=== PATIENT | female | born 2000 | race Caucasian/White ===

== ENCOUNTER 2021-09-20 16:30 | Inpatient (IN) | payer OTHER, SELFPAY ==
[2021-09-20 16:24] VITALS: BMI 38.7
--- NOTE | 2021-09-20 17:07 | PCM.HP.OB ---
HPI - General General Date of Admission: 09/20/21 HPI Narrative COLETTE ADAMS, is a 20 @ 41 weeks F who presents for POST DATES EDC. pt reports decreased FM over last few days. Pt denies VB, LOF. Maternal Data Information Final NICK: 09/13/21 Final NICK Source: US <20 weeks Gestational age: 40 PFSH PFSH Home Medications acetaminophen [Tylenol] 650 mg PO Q6H PRN 09/20/21 [History Last Taken Unknown] vit-iron fum-folic ac [ Fa] 1 tab PO DAILY 09/20/21 [History Last Taken Unknown] Allergy/AdvReac Type Severity Reaction Status Date / Time No Known Allergies Allergy Verified 09/20/21 16:24 Social History Smoking Status: Never smoker History Elective abortions Hx Para 0 Spontaneous abortions Hx # Term Pregnancies Ectopic pregnancies Hx # Pregnancies Multiple births # of living children NST FHR Rate Baby A Baseline: 145 Variability:: Moderate Accelerations:: 15 x 15 Decelerations:: None NST Reactive:: Yes FHR Category:: Category I Vital Signs Vital Signs Vital Signs: Weight Weight: 99.3 kg Body Mass Index (BMI) 38.7 Physical Exam Narrative VE: Closed/Thick/Posterior and high Const alert and oriented x3 General Appearance: cooperative HEENT normocephalic GI GI Narrative: Gravid, non tender to palpation. OB / External & Speculum: external exam normal Extremity normal to inspection Skin no rashes or lesions noted Neuro oriented x3 and CN's II-XII intact bilaterally Psych Appearance: grossly normal Labs Labs Labs: No Data to Display Assessment & Plan (1) 41 weeks gestation of : PLAN: Admit to L&D Mont[place] FHR/TOCO Epidural if requested for pain Monitor VS Anticipate CYTOTEC induction with possible transcervical mccall
[2021-09-20 17:30] VITALS: BP 128/64; PULSE 56; TEMP 36.7
[2021-09-20 17:40] LABS: Absolute Lymphocyte Count 3.22 X10^3/uL (0.83-4.51); Absolute Neutrophil Count 10.4 X10^3/uL (2.0-7.7); Basophil# 0.06 X10^3/uL; Basophil% 0.4 % (0-1); Eosinophil# 0.14 X10^3/uL; Eosinophils% 0.9 % (0-5); Hematocrit 37.4 % (37-47); Hemoglobin 12.7 g/dL (12.0-15.0); Lymphocyte # 3.22 X10^3/ul (0.83-4.51); Lymphocyte % 21.6 % (19-41); Mean Corpuscular Hgb 28.7 pg (27.0-32.0); Mean Corpuscular Volume 84.6 fL (81-99); Mean Platelet Vol. 11.8 fl (6.2-12.0); Monocyte# 0.95 X10^3/uL; Monocyte% 6.4 % (0-10); NRBC Flagged by Analyzer 0 % (0-5); Neutrophil # 10.38 X10^3/uL (2.7-7.7); Neutrophil % 69.6 % (47-70); Platelet Count 278 K/mm3 (150-450); RBC Distribution Width CV 15.1 % (11.6-14.6); RBC Distribution Width SD 46.1 fl (35.1-43.9); Red Blood Count 4.42 M/mm3 (4.2-5.4); White Blood Count 14.9 K/mm3 (4.4-11.0)
[2021-09-20] MEDS: Lactated Ringers 1,000 ML 50 ML IV (17:50)
[2021-09-20] MEDS: miSOPROStol 25 MCG TABLET VAGINAL (18:49)
[2021-09-20 19:19] VITALS: BP 125/67; PULSE 73; TEMP 36.7
[2021-09-20] MEDS: 0.9% Saline Lock 10 ML Syringe IV (19:38)
[2021-09-20 20:35] VITALS: BP 142/73; PULSE 72; TEMP 36.5
[2021-09-20 21:40] VITALS: BP 122/76; PULSE 64
[2021-09-20 21:41] VITALS: TEMP 36.3
[2021-09-20 22:39] VITALS: BP 121/77; PULSE 74
[2021-09-20] MEDS: miSOPROStol 50 MCG TABLET VAGINAL (22:58)
[2021-09-21] VITALS (41 sets, daily range): BP systolic 102–148; BP diastolic 47–87; PULSE 58–113; RESP 14–18; TEMP 36.2–37.4; O2SAT 93–100
--- NOTE | 2021-09-21 06:48 | PCM.PN.BLA ---
Progress Note Patient seen at bedside, doing well. Patient reports is starting to feel some contractions. Vaginal exam she is /- transcervical Blanco bulb placed. Patient tolerated well. heart rate category one. We will start Pitocin at this time.
[2021-09-21] MEDS: 0.9% Normal Saline Single 100 ML IV.SOLN. INTRA-UTER (06:51)
[2021-09-21] MEDS: Oxytocin 30 units/NS 500 ml 30 UNITS/500 ML IV.SOLN IV (07:46)
[2021-09-21] MEDS: Lactated Ringers 500 ML 999 ML IV ×2 (08:10→10:24)
--- NOTE | 2021-09-21 10:52 | PCM.PN.BLA ---
Progress Note Patient seen at bedside, doing well. Patient reports contractions are getting more painful rates them 7 out of 10 on a pain scale. Vaginal exam performed /-2 AROM performed thick meconium. Narrow pubic arch on exam. IUPC and IFM placed. Patient considering epidural at this time. Continue Pitocin.
[2021-09-21] MEDS: fentaNYL-bupivacaine (epidural) 100 ML BAG EPIDURAL (11:30)
[2021-09-21] MEDS: Lactated Ringers 1,000 ML 200 ML IV (13:21)
[2021-09-21] MEDS: Acetaminophen 500 MG Tablet PO (15:42)
[2021-09-21] MEDS: Sodium Citrate/Citric Acid 30 ML UDC PO (15:42)
[2021-09-21] MEDS: Cefazolin 2 GM in 0.9% Normal Saline 100 ML IV (16:11)
--- NOTE | 2021-09-21 16:45 | EX.PCM.OBRPT ---
Assessment & Plan (1) heart rate decelerations affecting management of mother: (2) 41 weeks gestation of : (3) Meconium in amniotic fluid affecting management of mother: (4) Obesity affecting : Maternal Data Information Final NICK: 09/13/21 Final NICK Source: US <20 weeks Gestational age: 41.1 Details Operative Information Date of Procedure: 09/21/21 Pre-Operative Diagnosis: 41.1 weeks gestation, meconium amniotic fluid, category 2 FHR remote from delivery, obesity in Post-Operative Diagnosis: same, live male Indications for : Distress Indications Narrative: Patient underwent induction of labor due to postdates. She had 2 doses of Cytotec followed by Blanco and Pitocin. Artificial rupture membranes was performed meconium fluid noted. Patient having tachysystole unable to continue increasing Pitocin due to tachysystole and variable decelerations as well as prolonged decelerations. Patient was counseled on primary section due to remote from delivery and category 2 heart rate tracing. Patient agreed and proceeded with primary section. 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 ) Antibiotic Given: Ancef 2 grams IV x1 and Zithromax 500 mg/5 mL X1 Drain: Blanco to straight drain Estimated Blood Loss: 600 Fluids Replaced: 1000 Procedure Start Time: 16:13 Procedure Stop Time: 16:42 Time of Delivery: 16:16 Findings Description of Procedure: After informed consent was obtained the patient was taken the operating room. epidural anesthesia was found to be inadequate- local 1% lidoaine injected at incision site- pt comfortable. She was then placed in the supine position. She was prepped and draped in the normal sterile fashion. Anesthesia was found to be adequate. At this time a Pfannenstiel skin incision was made with a knife was carried down to the underlying layer of the fascia. The fascial incision was then extended laterally using curved Segundo scissor. Attention was then turned to the superior aspect of the fascial edge was grasped with 2 straight Sd clamps tented up and the rectus muscle dissected off sharply using curved Segundo scissor. Attention was then turned to the inferior aspect where again [place] clamps were placed in the rectus muscles were tented up and the fascia was dissected off sharply using the curved Segundo scissor. .Rectus muscles were then in the midline bluntly and peritoneum was entered bluntly. Gentle opposing traction was placed. At this time the vesicouterine peritoneum was identified. Scalpel was used to make a uterine incision in a low transverse fashion. The uterus was then entered bluntly gentle opposing traction was placed to extend this incision. Meconinum fluid still noted. 's head was brought to the uterine incision was delivered atraumatically. 1 loose nuchal noted and reduced. mouth and nose suctioned- infant was vigorous.delayed cord clamping. Cord was clamped and cut infant was handed to the waiting nursery team. Pt had pain on left- anesthesia gave IV versed to help with patient comfort. The Placenta was removed from the uterus. The uterus remained in intraabdominal cavity. The uterus was cleared of all clots and debris using a lap. At this time the uterine incision was reapproximated using #1 Vicryl in a running locked fashion. followed by a second layer with multiple figure of eights with 1-0 vicryl. Hemostasis was appreciated. Gutters were cleared of all clots and debris. Uterine incision was reevaluated and noted to be of excellent hemostasis. At this time the peritoneum was grasped with Kellys reapproximated using #2 Vicryl suture in a running fashion. Muscles then reapproximated using #2 Vicryl in a interrupted mattress suture fashion. Fascia was then reapproximated using #1 Vicryl in a running fashion. Subcu layer was reapproximated with #2 0 plain gut suture in an interrupted fashion. Subcu layer was closed using 4-0 vicryl on a Aubrey needle in a subcu fashion. Dry sterile dressing was applied. Instrument lap needle count correct ?2. Anticipated normal postoperative course. Presentation: Positive for Vertex Amniotic Membrane Rupture Type: Artificial Amniotic Fluid Description: Thick meconium Placental Delivery Description: Expressed Placenta Disposition: [facility] Cord Vessel Description: 3 Vessels Cord Entanglement: Around neck x 1, loose Nuchal Cord Compression: With compression Infant A Gender: Male (1 minute): 9 (5 minute): 9 Delayed Cord Clamping: Yes Complications Risks of Surgery Discussed w/Patient: Bleeding, Anesthesia Risks, Infection and Injury to surrounding structure(s) including bowel and bladder Complications: none
[2021-09-21] MEDS: Oxytocin 30 units/NS 500 ml 30 UNITS/500 ML IV.SOLN 167 UNITS IV (17:00)
--- NOTE | 2021-09-21 17:23 | NURSING ---
Received report from Anthony Farooq RN. Will assume care at this time.
[2021-09-21] MEDS: Ketorolac 30 MG/ML Syringe IV ×2 (17:37→22:35)
[2021-09-21] MEDS: Methylergonovine 0.2 MG/ML Ampul IM (17:51)
[2021-09-21] MEDS: Lactated Ringers 1,000 ML 100 ML IV (20:42)
[2021-09-21] MEDS: Acetaminophen 500 MG Tablet 1000 MG PO (21:39)
[2021-09-22] VITALS (8 sets, daily range): BP systolic 106–121; BP diastolic 58–65; PULSE 71–94; RESP 14–18; TEMP 36.4–36.6; O2SAT 96–98
[2021-09-22] MEDS: Acetaminophen 500 MG Tablet 1000 MG PO ×4 (03:42→21:54)
[2021-09-22] MEDS: Ketorolac 30 MG/ML Syringe IV ×2 (05:03→11:04)
[2021-09-22 05:21] LABS: Hematocrit 29.4 % (37-47); Hemoglobin 9.8 g/dL (12.0-15.0); Mean Corp Hgb Conc 33.3 g/dL (32-36); Mean Corpuscular Hgb 28.3 pg (27.0-32.0); Mean Platelet Vol. 11.3 fl (6.2-12.0); Platelet Count 226 K/mm3 (150-450); RBC Distribution Width SD 46.1 fl (35.1-43.9); Red Blood Count 3.46 M/mm3 (4.2-5.4); White Blood Count 24.1 K/mm3 (4.4-11.0)
[2021-09-22] MEDS: Enoxaparin 40 MG/0.4 ML Syringe SC (06:10)
--- NOTE | 2021-09-22 07:46 | PCM.PN.OB ---
Subjective Subjective Patient seen at bedside, doing well. Patient reports good pain control. Mild lochia. Patient reports urinating without difficulty and passing flatus. Tolerating regular diet. Breast-feeding. Denies any dizziness with ambulation. Objective Data Objective Data Vital Signs: Vital Signs Temp Pulse Resp BP Pulse Ox 97.7 F L 86 18 106/63 97 09/22/21 03:39 09/22/21 05:01 09/22/21 06:32 09/22/21 03:39 09/22/21 05:01 Oxygen Delivery Method Room Air Weight: 99.3 kg Body Mass Index (BMI) 38.7 Intake & Output: Intake and Output for Last 24 Hours 09/20/21 09/21/21 09/22/21 23:59 23:59 23:59 Intake Total 92.5 / 92.5 3198.44 / 3198.44 468.33 / 468.33 Output Total 2058 / 2058 2100 / 2100 Balance 92.5 / 92.5 1139.44 / 1139.44 -1631.67 / -1631.67 Lab / Micro Data Result Diagrams: 09/22/21 05:10 Labs: Laboratory Results - last 24 hr 09/22/21 05:10: WBC 24.1 H, RBC 3.46 L, Hgb 9.8 L, Hct 29.4 L, MCV 85.0, MCH 28.3, MCHC 33.3, RDW Std Deviation 46.1 H, RDW Coeff of Skyler 15.0 H, Plt Count 226, MPV 11.3 Micro: Microbiology 09/20/21 17:25 Nasal Secretion SARS-CoV-2 Antigen (Rapid) - Final Physical Exam Narrative Dressing is dry and intact. Const alert and oriented x3 General Appearance: cooperative HEENT normocephalic Neck General: normal visual inspection GI soft to palpation and non-distended GI Narrative: Fundus firm Extremity normal to inspection and no calf tenderness Skin no rashes or lesions noted Neuro oriented x3 and CN's II-XII intact bilaterally Psych mental status grossly normal Assessment & Plan (1) Delivery by section: (2) Acute blood loss anemia: PLAN: POD# 1 , Doing well- acute blood loss anemia (asymptomatic) Routine care pain mgmt monitor VS ambulation repeat cbc tomorrow morning start PO IRON
[2021-09-22] MEDS: Senna/Docusate Sodium 1 Tablet PO (10:07)
[2021-09-22] MEDS: Ferrous Sulfate 325 MG Tablet PO (11:04)
[2021-09-22] MEDS: 0.9% Saline Lock 10 ML Syringe IV (11:05)
[2021-09-22] MEDS: Ibuprofen 600 MG Tablet PO ×2 (16:47→21:54)
[2021-09-23] MEDS: Acetaminophen 500 MG Tablet 1000 MG PO ×2 (03:17→10:43)
[2021-09-23 03:52] VITALS: BP 109/61; PULSE 73; RESP 18; TEMP 36.6
[2021-09-23] MEDS: Ibuprofen 600 MG Tablet PO ×2 (04:02→10:43)
[2021-09-23 04:24] LABS: Hematocrit 27.1 % (37-47); Hemoglobin 8.7 g/dL (12.0-15.0); Mean Corp Hgb Conc 32.1 g/dL (32-36); Mean Corpuscular Hgb 27.9 pg (27.0-32.0); Mean Corpuscular Volume 86.9 fL (81-99); Mean Platelet Vol. 11.3 fl (6.2-12.0); Platelet Count 250 K/mm3 (150-450); RBC Distribution Width CV 15.7 % (11.6-14.6); RBC Distribution Width SD 49.5 fl (35.1-43.9); Red Blood Count 3.12 M/mm3 (4.2-5.4); White Blood Count 18.1 K/mm3 (4.4-11.0)
[2021-09-23 07:40] VITALS: BP 115/66; PULSE 75; RESP 16; TEMP 36.4
--- NOTE | 2021-09-23 09:34 | PCM.PN.OB ---
Subjective Subjective Doing well per patient and nursing staff. Ambulating and taking PO without difficulty. Voiding and passing flatus, no BM. Pain controlled with Tylenol and Ibuprofen. , services for assistance. Denies headache, visual changes, chest pain, shortness of breath, leg pain or increased bleeding. Lochia normal. Objective Data Objective Data Vital Signs: Vital Signs Temp Pulse Resp BP Pulse Ox 97.5 F L 75 16 115/66 96 09/23/21 07:40 09/23/21 07:40 09/23/21 07:40 09/23/21 07:40 09/22/21 20:30 Oxygen Delivery Method Room Air Weight: 218 lb 14.704 oz Body Mass Index (BMI) 38.7 Intake & Output: Intake and Output for Last 24 Hours 09/21/21 09/22/21 09/23/21 23:59 23:59 23:59 Intake Total 3198.44 / 3198.44 468.33 / 468.33 Output Total 2058 / 2058 2400 / 240 Balance 1139.44 / 1139.44 -1931.67 / -1931.67 Lab / Micro Data Result Diagrams: 09/23/21 04:10 Labs: Laboratory Results - last 24 hr 09/23/21 04:10: WBC 18.1 H, RBC 3.12 L, Hgb 8.7 L, Hct 27.1 L, MCV 86.9, MCH 27.9, MCHC 32.1, RDW Std Deviation 49.5 H, RDW Coeff of Skyler 15.7 H, Plt Count 250, MPV 11.3 Micro: Microbiology 09/20/21 17:25 Nasal Secretion SARS-CoV-2 Antigen (Rapid) - Final ROS Constitutional Constitutional: Reports systems reviewed and no addt'l complaints, except as documented; Denies headache(s) Eyes Eyes: Denies acute decrease in peripheral vision, blurry vision or change in vision ENT HEENT: Reports systems reviewed and no addt'l complaints, except as documented Cardiovascular Cardiovascular: Denies chest pain or dizziness Respiratory/Chest Respiratory/Chest: Denies cough, dyspnea, dyspnea on exertion, shortness of breath at rest or shortness of breath with exertion Gastrointestinal Gastrointestinal: Denies abdominal pain, diarrhea, nausea or vomiting Genitourinary Genitourinary: Denies abdominal discomfort Musculoskeletal Musculoskeletal: Denies limited range of motion Integumentary Integumentary: Reports systems reviewed and no addt'l complaints, except as documented Neurologic Neurologic: Reports systems reviewed and no addt'l complaints, except as documented Psychiatric Psychiatric: Reports systems reviewed and no addt'l complaints, except as documented Endocrine Endocrinology: Reports systems reviewed and no addt'l complaints, except as documented Hematologic/Lymphatic Hematologic/Lymphatic: Reports systems reviewed and no addt'l complaints, except as documented Allergic/Immunologic Allergic/Immunologic: Reports systems reviewed and no addt'l complaints, except as documented Physical Exam Const alert and oriented x3 General Appearance: cooperative Orientation / Consciousness: awake, oriented to person, oriented to place and oriented to time Exam Limitations: no limitations HEENT normocephalic Head and Scalp: normal to inspection, normocephalic and atraumatic Face and Sinus: normal facial exam Eyes General Eye: normal appearance of both eyes Neck full ROM Chest Chest: symmetrical chest wall rise Resp normal respiratory effort and normal air movement Auscultation: clear to auscultation bilaterally Cardio regular rate, regular rhythm, S1 normal heart sound, S2 normal heart sound, no murmurs, no rub, no gallops and no clicks GI normal to inspection, nondistended, normoactive bowel sounds and non-tender appearance of the vagina normal Narrative: Fundus firm 2 below U. Dressing dry and intact. Bladder / Kidney Exam: no CVA tenderness Back/Spine normal ROM Extremity normal to inspection and full ROM Skin no rashes or lesions noted Neuro oriented x3, CN's II-XII intact bilaterally and moves all extremities Sensorium / Orientation: awake, alert and oriented to person Motor Exam: clonus absent Deep Tendon Reflexes: Rt Patellar (L4): 2+ and Lt Patellar (L4): 2+ Assessment & Plan (1) Acute blood loss anemia: (2) Delivery by section: PLAN: 1) Routine discharge instructions 2) Hgb stable, continue iron supplement. Asymptomatic 3) Colace for stool softener 4) Pain management Oxycodone for pain 5) Follow up in one week for incision check and 6 week for PP visit 6) D/C home today
--- NOTE | 2021-09-23 09:39 | PCM.DC.SUM ---
Providers Date of Admission: 09/20/21 Primary Care Physician: Dr. Rudy Hutton MD Reason For Visit: LABOR/DELIVERY Diagnosis Discharge Diagnosis (1) Acute blood loss anemia: Status: Acute Code(s): D62 - Acute posthemorrhagic anemia (2) Delivery by section: Status: Acute Medications at Discharge Home Medications vit-iron fum-folic ac 1 tab PO DAILY 09/20/21 acetaminophen 1,000 mg PO Q6H #0 tab 09/23/21 ferrous sulfate [FeroSul] 325 mg PO 1200 30 Days #30 tab 09/23/21 ibuprofen 600 mg PO Q6H #30 tab 09/23/21 oxycodone 5 - 10 mg PO Q4H PRN PRN #0 tab 09/23/21 sennosides-docusate sodium [Stool Softener-Stimulant Laxat] 1 tab-cap PO DAILY #30 tab 09/23/21 Hospital Course Summary of Care Provided Hospital Course: Induction of labor 09/20/21. 41.1 weeks gestation, meconium amniotic fluid, category 2 FHR remote from delivery, obesity in . Low Transverse Section on 09/21/21. Acute blood loss anemia. Discharge home on postoperative day #2. Weight / BMI Weight Weight: 218 lb 14.704 oz Body Mass Index (BMI) 38.7 ABG / Lab / Microbiology Data Result Diagrams: 09/23/21 04:10 Laboratory: Laboratory Results - last 24 hr 09/23/21 04:10: WBC 18.1 H, RBC 3.12 L, Hgb 8.7 L, Hct 27.1 L, MCV 86.9, MCH 27.9, MCHC 32.1, RDW Std Deviation 49.5 H, RDW Coeff of Skyler 15.7 H, Plt Count 250, MPV 11.3 Microbiology: Microbiology 09/20/21 17:25 Nasal Secretion SARS-CoV-2 Antigen (Rapid) - Final Meaningful Use Info Meaningful Use Diagnoses (Choose all that apply): None applicable Discharge Plan Admission Admit Date/Time: 09/20/21 16:30 Primary Reason for Your Visit: Section Attending Provider: Chioma Paiz Primary Care Provider: Rudy Hutton Instructions Patient Instructions: Anemia, After a , Discharge Orders/Prescriptions Prescriptions: New acetaminophen 500 mg Tablet 1,000 mg PO Q6H Qty: 0 RF: 0 ferrous sulfate [FeroSul] 325 mg (65 mg iron) Tablet 325 mg PO 1200 30 Days Qty: 30 RF: 0 ibuprofen 600 mg Tablet 600 mg PO Q6H Qty: 30 RF: 0 sennosides-docusate sodium [Stool Softener-Stimulant Laxat] 8.6-50 mg Tablet 1 tab-cap PO DAILY Qty: 30 RF: 0 oxycodone 5 mg Tablet 5 - 10 mg PO Q4H PRN PRN (Reason: Pain Score 4-10) Qty: 0 RF: 0 Continued vit-iron fum-folic ac 60 mg iron-1 mg Tablet 1 tab PO DAILY RF: 0 Discontinued acetaminophen [Tylenol] 325 mg Tablet 650 mg PO Q6H PRN (Reason: Pain) RF: 0 Referrals / Follow Up: Chioma Paiz MD [STAFF PHYSICIAN] - (In one week for incision check. 6 weeks for visit) Rudy Hutton MD [Primary Care Provider] - Disposition Disposition (needs filled in before D/C Order can be placed): Home, Self Care
[2021-09-23] MEDS: Enoxaparin 40 MG/0.4 ML Syringe SC (10:43)
[2021-09-23] MEDS: Senna/Docusate Sodium 1 Tablet PO (10:43)
== END 2021-09-23 11:20 | disposition home or self-care (01) | DRG 787 ==
LOC: WPOUT 16:35 → WP 16:35
PROVIDERS: Admitting Provider Obstetrics & Gynecology; PCP Pediatrics; Referring Provider Obstetrics & Gynecology; Visit Provider Obstetrics & Gynecology
DX: O76 Abnormality in fetal heart rate and rhythm complicating labor and delivery (principal); D62 Acute posthemorrhagic anemia; O48.0 Post-term pregnancy; O99.214 Obesity complicating childbirth; E66.9 Obesity, unspecified; O77.0 Labor and delivery complicated by meconium in amniotic fluid; O69.81X0 Labor and delivery complicated by cord around neck, without compression, not applicable or unspecified; Z37.0 Single live birth; Z3A.41 41 weeks gestation of pregnancy; O99.02 Anemia complicating childbirth
CPT/HCPCS: 59025; 59050; 85025; 85027; 86850; 86900; 86901; 87426; 99218; J7120; A4216; G0378; J2405